=== PATIENT | female | born 2000 | race Caucasian/White ===

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

== ENCOUNTER 2022-01-16 12:04 | Emergency (ER) | payer OTHER | END 2022-01-16 14:35 | disposition home or self-care (01) | LOC: ERS 12:04 | DX: H60.92 Unspecified otitis externa, left ear (principal) | CPT/HCPCS: 99282 ==